=== PATIENT | female | born 2000 | race Caucasian/White ===

== ENCOUNTER 2022-05-18 15:53 | Emergency (ER) | payer MEDICAID ==
[~2022-05-18] VITALS: Ht 157.5 cm; Wt 59.1 kg
[2022-05-18 17:06] LABS: BASOPHILS % (AUTO) 0.3 % (0-1); EOSINOPHILS # (AUTO) 0.1 X10'3 (0-0.9); EOSINOPHILS % (AUTO) 0.9 % (0-6); HEMATOCRIT 31.8 % (35.0-45.0); HEMOGLOBIN 10.4 g/dl (12.0-16.0); LYMPHOCYTES # (AUTO) 2.3 X10'3 (1.1-4.8); MEAN CORPUSCULAR HEMOGLOBIN 25.5 PG (27.0-31.0); MEAN CORPUSCULAR HGB CONC 32.7 g/dL (33.0-36.5); MEAN CORPUSCULAR VOLUME 77.9 FL (78-98); MEAN PLATELET VOLUME 9.4 FL (7.4-10.4); MONOCYTES % (AUTO) 10.3 % (2-12); NEUTROPHILS # (AUTO) 6.3 X10'3 (1.8-7.7); NEUTROPHILS % (AUTO) 64.5 % (42-75); PLATELET COUNT 243 X10'3 (140-440); RED BLOOD COUNT 4.09 X10'6 (4.20-5.60); RED CELL DISTRIBUTION WIDTH 14.9 % (11.5-14.5); WHITE BLOOD COUNT 9.8 X10'3 (4.5-11.0)
--- NOTE | 2022-05-18 17:10 | NUR ---
Spoke with Paulino NATHAN regarding need for binax swab. Paulino NATHAN gave verbal order for binax swab once now.
[2022-05-18 17:16] LABS: ALANINE AMINOTRANSFERASE 18 U/L (12-78); ALBUMIN 3.4 G/DL (3.4-5.0); ALBUMIN/GLOBULIN RATIO 0.8 (1.1-1.5); ALKALINE PHOSPHATASE 65 IU/L (20-180); ANION GAP 12 (8-16); ASPARTATE AMINO TRANSFERASE 16 U/L (10-37); BILIRUBIN,TOTAL 0.2 MG/DL (0.1-1.0); BLOOD UREA NITROGEN 9 MG/DL (7-18); BUN/CREATININE RATIO 23.1 (6.6-38.0); CHLORIDE 106 MMOL/L (99-107); CREATININE 0.39 MG/DL (0.40-0.90); GLUCOSE 73 MG/DL (70-104); POTASSIUM 3.8 MMOL/L (3.5-5.1); SODIUM 139 MMOL/L (135-145); TOTAL CARBON DIOXIDE 21.2 MMOL/L (24-32); TOTAL PROTEIN 7.7 G/DL (6.4-8.2); eGFR > 90 ML/MIN
--- NOTE | 2022-05-18 17:18 | NUR ---
PT SITTING ON HER BED WITHOUT DISTRESS. COOPERATIVE W CARE
[2022-05-18 17:31] LABS: ETHANOL < 0.010 GM/DL (0.0-0.010)
[2022-05-18 17:34] LABS: CLARITY,URINE CLOUDY (Clear); COLOR,URINE YELLOW (Yellow); GLUCOSE, URINE NEGATIVE (Neg); KETONES,URINE TRACE mg/dl (Neg); LEUKOCYTE ESTERASE ,URINE NEGATIVE (Neg); NITRITES, URINE NEGATIVE (Neg); OCCULT BLOOD,URINE NEGATIVE (Neg); PROTEIN,URINE NEGATIVE (Neg)
[2022-05-18 17:48] LABS: UA COLLECTION TYPE CLN CATCH MIDSTREAM
[2022-05-18 17:49] LABS: BACTERIA,URINE FEW /HPF (Neg); MUCUS STRANDS MANY /LPF (Neg); RBC,URINE 0-2 /HPF (0-2); SQUAMOUS EPITHELIAL CELL,UR MANY /LPF (FEW); URINE AMPHETAMINE SCREEN NEGATIVE (Neg); URINE BARBITUATE SCREEN NEGATIVE (Neg); URINE BENZODIAZEPINES SCREEN NEGATIVE (Neg); URINE CANNABINOID SCREEN NEGATIVE (Neg); URINE COCAINE SCREEN NEGATIVE (Neg); URINE METHADONE SCREEN NEGATIVE (Neg); URINE OPIATE SCREEN NEGATIVE (Neg); URINE PHENCYCLIDINE SCREEN NEGATIVE (Neg)
--- NOTE | 2022-05-18 21:19 | NUR ---
PT SITTING ON HER BED IN HER ROOM. NO DISTRESS
[2022-05-18] MEDS ORDERED: PNV1TABL75 PO (21:34)
--- NOTE | 2022-05-18 23:00 | NUR ---
PT SITTING IN ROOM AND IN NO APPARENT DISTRESS
--- NOTE | 2022-05-19 00:52 | NUR ---
PT IS LAYING DOWN TO SLEEP AND IS IN NO APPARENT DISTRESS.
--- NOTE | 2022-05-19 00:56 | NUR ---
MONET DUFFFRIENAdan PHONE NUMBER [phone]
--- NOTE | 2022-05-19 01:31 | NUR ---
PT UP TO USE BATHROOM. PT DENIES ANY CURRENT NEEDS
--- NOTE | 2022-05-19 02:49 | NUR ---
PT UP TO USE THE RESTROOM
--- NOTE | 2022-05-19 03:39 | NUR ---
PT APPEARS TO BE SLEEPING. EQUAL RISE AND FALL OF CHEST NOTED.
--- NOTE | 2022-05-19 04:00 | NUR ---
PT WITH EYES CLOSE NON LABORED BREATHING. NO S/S OF PAIN OR RESP DISTRESS. WILL MONITOR.
--- NOTE | 2022-05-19 05:16 | NUR ---
PT SITTING IN BED IN NO APPARENT DISTRESS. RN AT BEDSIDE. PT DENIES ANY NEEDS AT THIS TIME
[2022-05-19 05:51] VITALS: BP 126/68
--- NOTE | 2022-05-19 06:53 | NUR ---
[facility] packet faxed.
--- NOTE | 2022-05-19 07:07 | NUR ---
Telephone report to RAFIQ Trujillo. All questions answered.
--- NOTE | 2022-05-19 08:03 | NUR ---
Patient eating breakfast. No distress observed. Continue to monitor.
--- NOTE | 2022-05-19 09:20 | NUR ---
Jordan LOONEY, evaluating patient. No distress observed. Continue to monitor.
== END 2022-05-19 11:13 | disposition home or self-care (01) ==
LOC: ER 15:54
DX: O99.343 Other mental disorders complicating pregnancy, third trimester (principal); Z20.822 Contact with and (suspected) exposure to COVID-19; F43.10 Post-traumatic stress disorder, unspecified; F41.9 Anxiety disorder, unspecified; Z79.899 Other long term (current) drug therapy; Z3A.00 Weeks of gestation of pregnancy not specified
CPT/HCPCS: 36415; 80053; 80305; 80320; 81001; 84443; 85025; 87811; 99283